=== PATIENT | male | born 1985 | race Caucasian/White ===

== ENCOUNTER 2024-11-01 20:58 | Emergency (ER) | payer SELFPAY ==
[2024-11-01 21:06] VITALS: BP 156/105; PULSE 85; RESP 16; TEMP 36.8; O2SAT 99; BMI 21.1
--- NOTE | 2024-11-01 21:35 | ED_ITS ---
HPI - General Adult General: Chief complaint: General Medical Stated complaint: Possible STD Time Seen by Provider: 11/01/24 21:08 History of Present Illness: Patient is 39-year-old gentleman presents with urine smell, discharge. Admits to new sexual partner. He has been positive for STI in the past. No history of HSV. No history of syphilis, HIV. Patient was checked in [place] approximately 2 months ago for STI, gonorrhea, chlamydia, trichomonas, HIV, and syphilis. This is a change since then. No fevers, no joint pain Associated symptoms: Deny chest pain, dyspnea, headache(s), nausea, rash, palpitations or vomiting Related Data Previous Rx's ?Medication ?Instructions ?Recorded cefdinir 300 mg capsule 300 mg PO BID 10 days #20 ca ps 11/01/24 doxycycline hyclate 100 mg capsule 100 mg PO BID 10 da ys #20 caps 11/02/24 Allergies Allergy/AdvReac Type Severity Reaction Status Date / Time No Known Allergies Allergy Verified 11/01/24 21:12 Review of Systems General: Reports: 10 or more systems reviewed and unremarkable except in HPI and below Const: Denies: fever(s), chills or body aches Eyes: Denies: change in vision or blurry vision ENMT: Denies: throat pain or mouth pain Card: Denies: chest pain or palpitations Resp: Denies: dyspnea or productive cough GI: Denies: abdominal pain, nausea or vomiting : Reports: urinary urgency and other (smell); Denies: flank pain Skin/Breast: Denies: rash, skin tenderness or sores Neuro: Denies: headache(s), numbness in extremities or sensory changes Psych: Denies: anxiety or depression Physical Exam Const: COMMON NORMALS: no acute distress, average body habitus, patient oriented x3, no limitations, healthy appearing, alert and well nourished GENERAL APPEARANCE: cooperative ORIENTATION/CONSCIOUSNESS: Yes awake and Yes oriented to person HENMT: COMMON NORMALS: normocephalic and atraumatic HEAD & SCALP: normocephalic and atraumatic Neck/C-Spine: COMMON NORMALS: full ROM, no lymphadenopathy and supple Lymph: LYMPHATIC: no lymphadenopathy noted Chest: COMMONS NORMALS: normal inspection of the chest and normal palpation of entire chest wall Resp: COMMON NORMALS: normal respiratory effort and clear to auscultation bilaterally AUSCULTATION: clear to auscultation bilaterally GI: COMMON NORMALS: Normal to inspection, nondistended, normoactive bowel sounds present, Soft to palpation and non-tender PALPATION: Yes Soft to palpation : COMMON NORMALS: Yes no CVA tenderness BLADDER/KIDNEY EXAM: Yes no CVA tenderness Back/Pelvis: COMMON NORMALS: no CVA tenderness Extremity: COMMON NORMALS: normal to inspection and full ROM Neuro: COMMON NORMALS: patient oriented x3 SENSORIUM/ORIENTATION: Yes alert and Yes oriented to person Psych: COMMON NORMALS: mental status grossly normal and Normal thought process present THOUGHT PROCESS: Normal thought process present Course Vital Signs: Vital signs: Vital Signs Temperature 98.3 F 11/01/24 21:06 Pulse Rate 78 11/02/24 00:14 Respiratory Rate 16 11/02/24 00:14 Blood Pressure 162/102 11/02/24 00:14 Pulse Oximetry 99 11/02/24 00:14 Oxygen Delivery Me thod Room Air 11/01/24 21:06 MDM - General Adult Medical Decision Making Patient is a 39-year-old gentleman that was just checked for STIs 2 months ago, however has new sexual partner in the last 7 days, partners, for which he had exposure to STI. Testing came back for gonorrhea. I did educate patient that the syphilis/RPR is pending and will not be back until at least the end of the week. He will need to sign up for the patient portal and coordinate, or someone will call him. He will also need to have HIV, hepatitis, HSV testing through the health department in 1 month. I did educate patient on no intercourse for 1 week and all partners need to be treated during that time. He was also treated for secondary UTI however I do suspect this is gonococcal in nature. I have sent additional coverage to the pharmacy for chlamydia even though this was negative, per guidelines Co. treating is best. Lab Data Laboratory Results Urine Color Yellow (Yellow) 11/01/24 21:15 Urine Appearance Cloudy (CLEAR) A 11/01/24 21:15 Urine pH 6.5 (5-7) 11/01/24 21:15 Ur Specific [place] 1.025 (1.005-1.030) 11/01/24 21:15 Urine Protein 1+ (Negative) A 11/01/24 21:15 Urine Glucose (UA) Negative (Normal) 11/01/24 21:15 Urine Ketones Trace (Negative) 11/01/24 21:15 Urine Blood 1+ (Negative) A 11/01/24 21:15 Urine Nitrate Negative (Negative) 11/01/24 21:15 Urine Bilirubin Negative (Negative) 11/01/24 21:15 Urine Urobilinogen 1.0 mg/dL (Negative) 11/01/24 21:15 Ur Leukocyte Esterase 3+ (Negative) A 11/01/24 21:15 Urine RBC 21-50 /hpf (0-2) H 11/01/24 21:15 Urine WBC >100 /hpf (0-5) H 11/01/24 21:15 Ur Squamous Epith Cells 0-5 /hpf (0-5) 11/01/24 21:15 Amorphous Sediment Not Reportable 11/01/24 21:15 Urine Bacteria None seen /hpf (NONE) 11/01/24 21:15 Hyaline Casts 0-4 /lpf H 11/01/24 21:15 Urine Sperm 1+ /hpf 11/01/24 21:15 C. trachomatis (PCR) Not detected 11/01/24 21:15 N. gonorrhoeae (PCR) Detected 11/01/24 21:15 No radiology studies performed this visit Discharge Plan Discharge Patient Disposition: Home Clinical Impression: Acute gonorrhea of genitourinary tract, Pyuria due to bacterial urinary tract infection Condition: Stable Prescriptions: New cefdinir 300 mg capsule 300 mg PO BID 10 Days Qty: 20 0RF doxycycline hyclate 100 mg capsule 100 mg PO BID 10 Days Qty: 20 0RF Discharge Orders: Discharge ED (Routine); Ordered 11/01/24 Ordered By: Vianca Cristina Discharge Diet: Usual diet Discharge Activity: Resume usual activity Patient Instructions: Sexually Transmitted Diseases (ED), Urinary Tract Infection in Men (ED), Patient Portal & Monica Instructions Activity Restrictions/Additional Instructions: RPR is pending and a send out test. This will not be back until the end of the week. Check HIV, hepatitis, and HSV through the health department. You will need to wait 1 month prior to checking. Practice safe sexual practices with condom No sex x 1 week for treatment. Your sexual partners will need to be checked for STI/STD with her doctor. Come back to ED with worsening symptoms, joint pain, fevers Print Language: [place] Coding Level of Care Code ED Platform Material Handling Supervisor for Fabricio Parker
[2024-11-01 22:19] LABS: Glucose Urine UA Negative (Normal); Nitrate Urine Negative (Negative); Specific Gravity, Urine 1.025 (1.005-1.030)
[2024-11-01 22:24] LABS: Add Urine Microscopic? YES
[2024-11-01 23:49] LABS: Neisseria Gonorrhea DETECTED
[2024-11-02] MEDS: cefTRIAXone 1,000 mg SDV 500 MG IVP (00:11)
[2024-11-02 00:14] VITALS: BP 162/102; PULSE 78; RESP 16; O2SAT 99
[2024-11-03 13:55] LABS: RPR w(Moniotor) w/REFL Titer NON-REACTIVE (NON-REACTIVE)
== END 2024-11-02 00:15 | disposition home or self-care (01) ==
PROVIDERS: Emergency Provider Physician Assistant
DX: A54.9 Gonococcal infection, unspecified (principal); N39.0 Urinary tract infection, site not specified
CPT/HCPCS: 36415; 81001; 86592; 87086; 87210; 87491; 87591; 96374; 99284; J0696; J9999